=== PATIENT | male | born 1980 | race African-American/Black ===

== ENCOUNTER 2023-08-27 09:26 | Inpatient (IN) | payer OTHER ==
[2023-08-27 09:43] VITALS: BMI 22.4
[2023-08-27] MEDS ORDERED: NALOXONE HCL 0.4 MG/ML VIAL IM PRN (10:32)
[2023-08-27] MEDS ORDERED: BENZOCAINE/MENTHOL (CHLORASEPTIC ) LOZENGE MM PRN (10:32)
[2023-08-27] MEDS ORDERED: NALOXONE HCL (KLOXXADO) 8 MG SPRAY NS PRN (10:32)
[2023-08-27] MEDS ORDERED: MAGNESIUM HYDROX 2400MG/30ML ORAL SUSPENSION 30 ML CUP PO PRN (10:32)
[2023-08-27] MEDS ORDERED: ONDANSETRON *ODT* 4 MG TABLET SL PRN (10:32)
[2023-08-27] MEDS ORDERED: BENZONATATE 200 MG CAPSULE PO PRN (10:32)
[2023-08-27] MEDS ORDERED: METHOCARBAMOL 500 MG TABLET PO PRN (10:32)
[2023-08-27] MEDS ORDERED: MAG HYDROX/AL HYDROX/SIMETH 30 ML UNIT-DOSE CUP PO PRN (10:32)
[2023-08-27] MEDS ORDERED: BISMUTH SUBSALICYLATE 262 MG/15 ML BTL PO PRN (10:32)
[2023-08-27] MEDS ORDERED: IBUPROFEN 400 MG TABLET (FP) PO PRN (10:32)
[2023-08-27] MEDS ORDERED: DICYCLOMINE HCL 10 MG CAPSULE PO PRN (10:32)
[2023-08-27] MEDS ORDERED: hydrOXYzine PAMOATE 25 MG CAPSULE (FP) PO PRN (10:32)
[2023-08-27] MEDS ORDERED: POLYETHYLENE GLYCOL (HEALTHYLAX) 3350 17 GM PACKET PO PRN (10:32)
[2023-08-27] MEDS ORDERED: guaiFENesin 600 MG TABLET.ER (FP) PO PRN (10:32)
[2023-08-27] MEDS ORDERED: LOPERAMIDE HCL 2 MG CAPSULE PO PRN (10:32)
[2023-08-27] MEDS ORDERED: ACETAMINOPHEN 325 MG TABLET (FP) PO PRN (10:32)
[2023-08-27] MEDS ORDERED: IBUPROFEN 600 MG TABLET (FP) PO PRN (10:32)
[2023-08-27] MEDS ORDERED: NICOTINE POLACRILEX 2 MG GUM BUC PRN (10:44)
[2023-08-27 18:44] LABS: HIV INTERPRETATION NEGATIVE (NEGATIVE)
[2023-08-27] MEDS: THIAMINE HCL 100 MG TABLET (FP) PO SCH (22:31)
[2023-08-27] MEDS: MELATONIN 5 MG TABLETS PO SCH (22:31)
[2023-08-28] MEDS: PRENATAL VITAMINS W/ FOLIC ACID TABLET (FP) PO SCH (10:18)
[2023-08-28 11:45] LABS: POTASSIUM 3.9 mmol/L (3.5-5.1)
[2023-08-28 11:59] LABS: BLOOD UREA NITROGEN 16.1 mg/dL (7-18)
[2023-08-28 12:01] LABS: BILIRUBIN,TOTAL 0.5 mg/dL (0.2-1)
[2023-08-28 12:02] LABS: CREATININE 1.2 mg/dL (0.55-1.3)
[2023-08-28 12:03] LABS: TOT PROT 7.7 g/dl (6.4-8.2)
[2023-08-28 12:26] LABS: HEMOGLOBIN 12.7 GM/dL (11.7-16.9); MCH 29.4 pg (25.7-33.7); MCHC 33.3 g/dl (32.0-35.9); MEAN CELL VOLUME 88.5 fl (80-96); MEAN PLT VOLUME 7.8 fl (7.5-11.1); PLATELET COUNT 307 10^3/uL (134-434); RDW 13.6 % (11.9-15.9); WHITE BLOOD COUNT 3.2 K/mm3 (4.0-10.0)
[2023-08-28] MEDS ORDERED: diazePAM 5 MG TABLET PO ONE (12:45)
[2023-08-28] MEDS: diazePAM 5 MG TABLET PO SCH ×2 (17:38→22:20)
[2023-08-28] MEDS: MELATONIN 5 MG TABLETS PO SCH (22:19)
[2023-08-28] MEDS: THIAMINE HCL 100 MG TABLET (FP) PO SCH (22:20)
[2023-08-29] MEDS: diazePAM 5 MG TABLET PO SCH ×4 (05:36→22:27)
[2023-08-29] MEDS: PRENATAL VITAMINS W/ FOLIC ACID TABLET (FP) PO SCH (10:07)
[2023-08-29] MEDS: THIAMINE HCL 100 MG TABLET (FP) PO SCH (22:25)
[2023-08-29] MEDS: MELATONIN 5 MG TABLETS PO SCH (22:28)
[2023-08-30] MEDS: diazePAM 5 MG TABLET PO SCH ×2 (05:44→13:39)
[2023-08-30] MEDS: PRENATAL VITAMINS W/ FOLIC ACID TABLET (FP) PO SCH (09:55)
[2023-08-31] MEDS: diazePAM 5 MG TABLET PO SCH ×3 (01:06→17:51)
[2023-08-31] MEDS: THIAMINE HCL 100 MG TABLET (FP) PO SCH ×2 (01:07→22:36)
[2023-08-31] MEDS: MELATONIN 5 MG TABLETS PO SCH ×2 (01:07→22:37)
[2023-08-31] MEDS: diazePAM 5 MG TABLET PO PRN ×2 (01:09→10:35)
[2023-08-31] MEDS: PRENATAL VITAMINS W/ FOLIC ACID TABLET (FP) PO SCH (10:35)
[2023-09-01] MEDS ORDERED: diazePAM 5 MG TABLET PO ONE (06:00)
[2023-09-01 09:13] VITALS: BP 108/62; PULSE 103; RESP 20; TEMP 97.5
[2023-09-01] MEDS: PRENATAL VITAMINS W/ FOLIC ACID TABLET (FP) PO SCH (09:59)
== END 2023-09-01 10:58 | disposition home or self-care (01) | DRG 774 ==
LOC: YASAS 09:26 → Y3N 11:51
PROVIDERS: ADMIT Allergy & Immunology; ATTEND Surgery
PROC: HZ2ZZZZ Detoxification Services for Substance Abuse Treatment (ICD-10-PCS; principal; 2023-08-27)
DX: F10.230 Alcohol dependence with withdrawal, uncomplicated (principal); F14.20 Cocaine dependence, uncomplicated; F12.20 Cannabis dependence, uncomplicated; F17.210 Nicotine dependence, cigarettes, uncomplicated; F41.9 Anxiety disorder, unspecified
CPT/HCPCS: 36415; 80053; 80307; 85027; 86780; 87389; 87635; 87811; 93005; 93010